=== PATIENT | female | born 1985 | race American Indian/Alaskan Native ===

== ENCOUNTER 2021-03-23 15:39 | Outpatient (CLI) | payer OTHER ==
[2021-03-23] MEDS ORDERED: LACTATED RINGERS 1,000 ML IV ONE (19:00)
[2021-03-23 19:02] LABS: Bilirubin,Urine SM (Negative); Blood,Urine NEG (Negative); Color,Urine Amber (Yellow); Mucus,Urine 1+ /HPF
[2021-03-23 19:07] LABS: Protein,Urine >500 mg/dL (Negative)
[2021-03-23 19:10] LABS: Amphetamine Screen,Urine Negative; Benzodiazepines Screen,Urine Negative; Cannabinoid Screen,Urine Negative; Cocaine Screen,Urine Negative; Methadone Screen,Urine Negative; Opiate Screen,Urine Negative
[2021-03-23 19:37] LABS: Ictotest,Urine Negative (Negative)
[2021-03-23 19:42] VITALS: BP 140/78
== END 2021-03-23 20:08 | disposition home or self-care (01) ==
LOC: TRG 15:39 → APU 15:41 → TRG 20:08
PROVIDERS: ATTEND Obstetrics & Gynecology
DX: O26.892 Other specified pregnancy related conditions, second trimester (principal); R10.9 Unspecified abdominal pain; Z3A.22 22 weeks gestation of pregnancy
CPT/HCPCS: 59025; 80307; 81001